=== PATIENT | female | born 1960 | race African-American/Black ===

== ENCOUNTER 2021-05-30 07:33 | Outpatient (CLI) | payer OTHER | END 2021-05-30 07:34 | disposition home or self-care (01) | LOC: CSHCP 07:33 | PROVIDERS: ATTEND Student in an Organized Health Care Education/Training Program | DX: R06.09 Other forms of dyspnea (principal); J44.9 Chronic obstructive pulmonary disease, unspecified; J98.4 Other disorders of lung; Z20.822 Contact with and (suspected) exposure to COVID-19 | CPT/HCPCS: 94060; 94760 ==